=== PATIENT | female | born 1940 | race Caucasian/White ===

== ENCOUNTER 2016-08-22 11:25 | Outpatient (CLI) | payer OTHER, MEDICARE, BC ==
[2016-07-10 07:39] VITALS: O2SAT 99
== END 2016-08-22 11:26 | disposition home or self-care (01) | DRG 561 ==
LOC: CONVCARE 11:25
PROVIDERS: ATTEND Orthopaedic Surgery
DX: S52.532D Colles' fracture of left radius, subsequent encounter for closed fracture with routine healing (principal); S52.202D Unspecified fracture of shaft of left ulna, subsequent encounter for closed fracture with routine healing
CPT/HCPCS: 73110

== ENCOUNTER 2016-09-19 07:42 | Outpatient (CLI) | payer OTHER, MEDICARE, BC ==
[2016-07-10 07:39] VITALS: O2SAT 99
== END 2016-09-19 07:43 | disposition home or self-care (01) | DRG 561 ==
LOC: CONVCARE 07:42
PROVIDERS: ATTEND Orthopaedic Surgery
DX: S52.532D Colles' fracture of left radius, subsequent encounter for closed fracture with routine healing (principal); S52.602D Unspecified fracture of lower end of left ulna, subsequent encounter for closed fracture with routine healing
CPT/HCPCS: 73110

== ENCOUNTER 2016-10-31 08:59 | Outpatient (CLI) | payer OTHER, MEDICARE, BC ==
[2016-07-10 07:39] VITALS: O2SAT 99
== END 2016-10-31 09:00 | disposition home or self-care (01) | DRG 561 ==
LOC: CONVCARE 08:59
PROVIDERS: ATTEND Orthopaedic Surgery
DX: S52.532D Colles' fracture of left radius, subsequent encounter for closed fracture with routine healing (principal); S52.202D Unspecified fracture of shaft of left ulna, subsequent encounter for closed fracture with routine healing
CPT/HCPCS: 73110